=== PATIENT | female | born 1970 | race Caucasian/White ===

== ENCOUNTER 2020-08-29 11:54 | Observation (INO) | payer OTHER ==
[~2020-08-29] VITALS: Ht 165.1 cm; Wt 113.4 kg
[2020-08-29] MEDS ORDERED: KETOROLAC TROMETHAMINE 30 MG/ML VIAL IV STA (13:24)
[2020-08-29] MEDS ORDERED: KETOROLAC TROMETHAMINE 30 MG/ML VIAL ONE (13:45)
[2020-08-29] MEDS ORDERED: NITROGLYCERIN 0.4 MG SUBL SL PRN (15:00)
[2020-08-29] MEDS ORDERED: HYDROCODONE/APAP 5MG-325MG TAB PO ONE (15:00)
[2020-08-29] MEDS ORDERED: SODIUM CHLORIDE FLUSH 10 ML SYR INJ PRN (15:00)
[2020-08-29] MEDS ORDERED: DEXAMETHASONE SOD PHOS 10 MG/1 ML VIAL IV ONE (15:00)
[2020-08-29] MEDS ORDERED: ASPIRIN 325 MG TAB PO ONE (15:00)
[2020-08-29] MEDS ORDERED: ASPIRIN 81 MG CHEW TAB PO ONE (15:00)
[2020-08-29] MEDS ORDERED: HYDROCODONE/APAP 5MG-325MG TAB ONE (15:03)
[2020-08-29] MEDS ORDERED: DEXAMETHASONE SOD PHOS INJ 4 MG/ML VIAL ONE (15:03)
[2020-08-29] MEDS ORDERED: ASPIRIN 325 MG TAB ONE (15:06)
[2020-08-29] MEDS ORDERED: AZITHROMYCIN 500MG/NS 250 ML 250 ML IV ONE (15:30)
[2020-08-29] MEDS ORDERED: CEFTRIAXONE SOD 1 GM/50 ML BAG IV ONE (15:30)
[2020-08-29] MEDS ORDERED: CEFTRIAXONE SOD 1 GM 50 ML IV ONE (15:42)
[2020-08-29] MEDS ORDERED: AZITHROMYCIN 500MG/NS 250 ML 250 ML ONE (15:42)
[2020-08-29] MEDS ORDERED: ONDANSETRON HCL INJ 2MG/ML 2ML 2 MG/ML VIAL IV PRN (15:45)
[2020-08-29] MEDS ORDERED: HYDROMORPHONE 1MG/1ML INJ IV PRN (15:45)
[2020-08-29] MEDS ORDERED: MORPHINE SULFATE INJ 2 MG/ML SYR IV PRN (15:45)
[2020-08-29] MEDS ORDERED: CEFTRIAXONE SOD 1 GM in SODIUM CHLORIDE 0.9% 50ML 50 ML IV ONE (16:00)
[2020-08-29] MEDS: METOPROLOL TARTRATE 25 MG TAB PO SCH ×2 (16:49→20:31)
[2020-08-29 19:37] VITALS: BP 174/97
[2020-08-29 20:00] VITALS: BP 174/97
[2020-08-30] VITALS (8 sets, daily range): BP systolic 98–114; BP diastolic 62–76
[2020-08-30 00:04] LABS: CREATINE KINASE 80 IU/L (29-168)
[2020-08-30 06:44] LABS: BASOPHILS % 0.2 % (0.0-1.0); HEMOGLOBIN 12.1 g/dL (12.0-16.0); LYMPHOCYTES # (AUTO) 5.8 (1.0-3.2); LYMPHOCYTES % 35.2 % (18.0-39.1); MEAN CORPUSCULAR HEMOGLOBIN 27.8 pg (28-32); MEAN CORPUSCULAR HGB CONC 31.8 g/dL (31-35); MEAN CORPUSCULAR VOLUME 87.4 fL (81-99); MONOCYTES # (AUTO) 0.5 (0.2-0.8); MONOCYTES % 3.2 % (4.4-11.3); NEUTROPHILS % 60.8 % (38.7-80.0); PLATELET COUNT 261 x10e3/uL (140-360); RED BLOOD COUNT 4.35 x10e6/uL (3.6-5.1); RED CELL DISTRIBUTION WIDTH 13.5 % (11.7-14.4)
[2020-08-30 07:15] LABS: BLOOD UREA NITROGEN 15 mg/dL (7-26); BUN/CREATININE RATIO 19 (6-25); CALCIUM 8.5 mg/dL (8.4-10.2); CARBON DIOXIDE 23 mmol/L (22-29); CHLORIDE 108 mmol/L (98-107); CHOL/HDL RATIO 3.8 (3.0-3.6); CHOLESTEROL 209 MD/DL (0-199); CREATININE, SERUM 0.77 mg/dL (0.57-1.11); EST GLOMERULAR FILTRATION RATE > 60 ML/MIN (60-); GLUCOSE 120 mg/dL (74-118); HDL CHOLESTEROL 55 MG/DL (40-60); LDL CHOLESTEROL 137 MG/DL (60-130); SODIUM 139 mmol/L (136-145); TRIGLYCERIDES 83 MG/DL (0-149)
[2020-08-30 08:10] LABS: CREATINE KINASE MB 0.5 ng/mL (0-5.0)
[2020-08-30] MEDS ORDERED: ACETAMINOPHEN 325 MG TAB PO PRN (08:30)
[2020-08-30] MEDS ORDERED: CEFTRIAXONE SOD 2 GM/100 ML ML IV SCH (08:30)
[2020-08-30] MEDS: ASPIRIN 81 MG ENTERIC COATED PO SCH (08:43)
[2020-08-30] MEDS: METOPROLOL TARTRATE 25 MG TAB PO SCH ×2 (08:43→21:41)
[2020-08-30 10:24] LABS: LYMPHOCYTES % (MANUAL) 40 % (19-48); MONOCYTES % (MANUAL) 2 % (3.4-9.0); NEUTROPHILS % (MANUAL) 58 % (40-74); OVALOCYTES FEW
[2020-08-30 10:26] LABS: HYPOCHROMASIA SLIGHT; PLATELET ESTIMATE ADEQUATE; RBC MORPHOLOGY COMMENT NORMAL
[2020-08-30] MEDS: CEFTRIAXONE SOD 2 GM in SODIUM CHLORIDE 0.9% 100 ML IV SCH (12:13)
[2020-08-30] MEDS ORDERED: ONDANSETRON HCL 4 MG ORAL DISINTEGRATING TAB PO PRN (12:15)
[2020-08-30] MEDS ORDERED: ATORVASTATIN 20 MG TAB PO SCH (21:00)
[2020-08-31] VITALS: BP 107/73
[2020-08-31 04:00] VITALS: BP 105/70
[2020-08-31 06:44] LABS: BASOPHILS # (AUTO) 0.1 (0.0-0.1); BASOPHILS % 0.3 % (0.0-1.0); EOSINOPHILS # (AUTO) 0.2 (0.0-0.4); EOSINOPHILS % 1.4 % (0.0-6.0); HEMATOCRIT 39.4 % (34.2-44.1); HEMOGLOBIN 12.4 g/dL (12.0-16.0); LYMPHOCYTES # (AUTO) 9.8 (1.0-3.2); LYMPHOCYTES % 63.9 % (18.0-39.1); MEAN CORPUSCULAR HEMOGLOBIN 28.2 pg (28-32); MEAN CORPUSCULAR HGB CONC 31.5 g/dL (31-35); MEAN CORPUSCULAR VOLUME 89.5 fL (81-99); MONOCYTES # (AUTO) 0.6 (0.2-0.8); NEUTROPHILS # (AUTO) 4.6 (2.1-6.9); NEUTROPHILS % 30.1 % (38.7-80.0); PLATELET COUNT 236 x10e3/uL (140-360)
[2020-08-31 07:49] VITALS: BP 122/87
[2020-08-31 08:07] VITALS: BP 122/87
[2020-08-31] MEDS: METOPROLOL TARTRATE 25 MG TAB PO SCH (08:28)
[2020-08-31] MEDS: ASPIRIN 81 MG ENTERIC COATED PO SCH (08:28)
[2020-08-31] MEDS: CEFTRIAXONE SOD 2 GM in SODIUM CHLORIDE 0.9% 100 ML IV SCH (09:00)
[2020-08-31] MEDS ORDERED: LIPITOR20 MG PO (09:35)
[2020-08-31] MEDS ORDERED: ASPIRIN81 MG PO (09:36)
[2020-08-31] MEDS ORDERED: TOPROL XL50 MG PO (09:37)
[2020-08-31] MEDS ORDERED: ceftin PO (09:39)
[2020-08-31 09:48] LABS: LYMPHOCYTES % (MANUAL) 67 % (19-48); MONOCYTES % (MANUAL) 2 % (3.4-9.0); NEUTROPHILS % (MANUAL) 28 % (40-74); OVALOCYTES FEW; PLATELET ESTIMATE ADEQUATE; PLATELET MORPHOLOGY COMMENT NORMAL; RBC MORPHOLOGY COMMENT NORMAL
== END 2020-08-31 10:50 | disposition home or self-care (01) ==
LOC: FSED 12:29 → ERHOLD 14:53 → MED/SURG3 19:42
PROVIDERS: ADMIT Internal Medicine; ATTEND Internal Medicine
DX: R07.89 Other chest pain (principal); M25.532 Pain in left wrist; R03.0 Elevated blood-pressure reading, without diagnosis of hypertension; J18.9 Pneumonia, unspecified organism; Z91.013 Allergy to seafood; Z68.41 Body mass index [BMI] 40.0-44.9, adult; E66.01 Morbid (severe) obesity due to excess calories; E78.00 Pure hypercholesterolemia, unspecified; F41.9 Anxiety disorder, unspecified; Z20.822 Contact with and (suspected) exposure to COVID-19
CPT/HCPCS: 36415 ×3; 71046; 73110; 73130; 80048 ×2; 80061; 80076; 81003; 81025; 82550 ×2; 82553 ×2; 83036; 84443; 84484 ×2; 85025 ×3; 85379; 87040; 93005 ×2; 93306; 93971; 99284; G0378 ×3; J0456; J0696 ×2; J1100; J1885; J7050; U0002